=== PATIENT | male | born 1985 | race American Indian/Alaskan Native ===

== ENCOUNTER 2016-12-30 01:39 | Emergency (ER) | payer MEDICAID ==
[2016-12-30] MEDS ORDERED: XYLOCAINE 2% INFILTRATI ONE (05:43)
[2016-12-30] MEDS ORDERED: NORCO 5/325 PO ONE (05:43)
[2016-12-30] MEDS ORDERED: TRIPLE ANTIBIOTIC TP ONE (05:53)
[2016-12-30] MEDS ORDERED: NACL 0.9% 500 ML IR ONE (06:18)
[2016-12-30] MEDS ORDERED: NACL 0.9% IR ONE (06:21)
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
[2016-12-30 07:14] VITALS: BP 115/74
== END 2016-12-30 07:15 | disposition home or self-care (01) ==
LOC: ED 01:39
DX: S01.511A Laceration without foreign body of lip, initial encounter (principal); S02.5XXA Fracture of tooth (traumatic), initial encounter for closed fracture; F17.200 Nicotine dependence, unspecified, uncomplicated; Y08.89XA Assault by other specified means, initial encounter; Y93.9 Activity, unspecified; Y92.9 Unspecified place or not applicable; Y99.9 Unspecified external cause status
CPT/HCPCS: A6250

== ENCOUNTER 2017-07-01 18:25 | Emergency (ER) | payer MEDICAID ==
[2017-07-01 19:48] VITALS: BP 134/53
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
== END 2017-07-01 21:50 | disposition home or self-care (01) ==
LOC: ED 18:25
DX: S61.132A Puncture wound without foreign body of left thumb with damage to nail, initial encounter (principal); F17.200 Nicotine dependence, unspecified, uncomplicated; F12.90 Cannabis use, unspecified, uncomplicated; W23.0XXA Caught, crushed, jammed, or pinched between moving objects, initial encounter; Y93.89 Activity, other specified; Y99.9 Unspecified external cause status; Y92.89 Other specified places as the place of occurrence of the external cause